=== PATIENT | female | born 1960 | race Caucasian/White ===

== ENCOUNTER 2022-03-22 09:52 | Emergency (ER) | payer BC ==
[~2022-03-22] VITALS: Ht 149.9 cm; Wt 131.5 kg
[2022-03-22] MEDS ORDERED: MORPHINE SULFATE 2 MG/1 ML DISP.SYRIN IV ONE (10:15)
[2022-03-22] MEDS ORDERED: ONDANSETRON 4 MG/2 ML VIAL IV ONE (10:15)
--- NOTE | 2022-03-22 10:41 | NUR ---
Patient out of unit for ct scan via [place] with no distress noted.
[2022-03-22 10:48] LABS: HEMATOCRIT 43.1 % (31.2-41.9); MEAN CORPUSCULAR HEMOGLOBIN 32.3 uug (24.7-32.8); MEAN CORPUSCULAR VOLUME 96.2 fL (75.5-95.3); PLATELET COUNT (AUTO) 341 K/uL (179-408)
--- NOTE | 2022-03-22 10:56 | NUR ---
Patient back from ct scan with no distress noted.
[2022-03-22 10:57] LABS: CARBON DIOXIDE 32 mmol/L (21-32); CHLORIDE 102 mmol/L (98-107); CREATININE 1.1 mg/dL (0.6-1.3); GLUCOSE 122 mg/dL (74-106); POTASSIUM 3.5 mmol/L (3.5-5.1); UREA NITROGEN, BLOOD 18 mg/dL (7-18)
[2022-03-22 11:05] LABS: ALANINE AMINOTRANSFERASE 32 U/L (14-59); ALKALINE PHOSPHATASE 98 U/L (50-136); ASPARTATE AMINOTRANSFERASE 30 U/L (15-37); BILIRUBIN,DIRECT < 0.1 mg/dL (0.0-0.2); BILIRUBIN,TOTAL 0.6 mg/dL (0.2-1.0); LIPASE 84 U/L (73-393); TOTAL PROTEIN, SERUM 7.8 g/dL (6.4-8.2)
--- NOTE | 2022-03-22 12:02 | NUR ---
URINE SPECIMEN SENT TO LAB.
[2022-03-22] MEDS ORDERED: AMOXICILLIN-CLAVUL 875-125MG TABLET PO ONE (12:15)
[2022-03-22] MEDS ORDERED: AMOXICILLIN-CLAVUL 875-125MG TABLET ONE (12:18)
[2022-03-22 12:22] LABS: *BILIRUBIN,URIN NEGATIVE (NEGATIVE); *CLARITY,URINE CLEAR (CLEAR); *COLOR,URINE YELLOW (YELLOW); *KETONES,URINE NEGATIVE (NEGATIVE); *UROBILINOGEN,URINE 0.2 E.U./dl (NORMAL); LEUKOCYTE ESTERASE ,URINE NEGATIVE (NEGATIVE); NITRITE, URINE NEGATIVE (NEGATIVE); UGLUCOSE NEGATIVE (NEGATIVE)
[2022-03-22 12:39] LABS: *BLOOD, URINE TRACE (NEGATIVE)
[2022-03-22 12:47] LABS: BACTERIA,URINE FEW /HPF (NONE SEEN); SQUAMOUS EPITHELIAL CELL,UR FEW /HPF (NONE SEEN); WBC,URINE NONE SEEN /HPF (0-3)
[2022-03-22] MEDS ORDERED: AMOX-430 PO (12:48)
[2022-03-22 12:59] VITALS: BP 130/85
--- NOTE | 2022-03-22 12:59 | NUR ---
Patient discharged to home in stable condition. Written and verbal after care instructions given. Patient verbalizes understanding of instructions. Stressed follow up or return to ER for worsening s/s.
== END 2022-03-22 13:01 | disposition home or self-care (01) ==
LOC: ER 09:52
DX: K43.2 Incisional hernia without obstruction or gangrene (principal); E66.01 Morbid (severe) obesity due to excess calories; Z68.43 Body mass index [BMI] 50.0-59.9, adult; R73.03 Prediabetes; E03.9 Hypothyroidism, unspecified; M06.9 Rheumatoid arthritis, unspecified; Z88.2 Allergy status to sulfonamides; Z88.1 Allergy status to other antibiotic agents; Z91.013 Allergy to seafood; R94.31 Abnormal electrocardiogram [ECG] [EKG]; K42.9 Umbilical hernia without obstruction or gangrene; N83.202 Unspecified ovarian cyst, left side; N83.201 Unspecified ovarian cyst, right side; K57.30 Diverticulosis of large intestine without perforation or abscess without bleeding; N20.0 Calculus of kidney; Z20.822 Contact with and (suspected) exposure to COVID-19
CPT/HCPCS: 36415; 83605; 83690; 84484; 85025; 93005; A4663